=== PATIENT | female | born 1940 | race Asian ===

== ENCOUNTER 2018-03-09 16:33 | Inpatient (IN) | payer MEDICARE, OTHER ==
[2018-03-09 17:48] LABS: #Basophils 0.1 thou/uL (0.0-0.2); #Eosinphils 0.3 thou/uL (0.0-0.7); #Lymphocytes 1.4 thou/uL (1.20-3.40); #Monocytes 0.6 thou/uL (0.11-0.59); #Neutrophils 4.8 thou/uL (1.40-6.50); %Basophils 1.2 % (0.0-1.0); %Eosinophils 4.6 % (0.0-10.0); %Lymphocytes 19.3 % (21.0-51.0); %Monocytes 8.2 % (0.0-10.0); %Neutrophils 66.7 % (42.0-75.0); Hemoglobin 15.4 g/dL (12.0-16.0); Mean Corpuscular HGB CONC 32.5 g/dL (32.0-36.0); Mean Corpuscular Hemoglobin 29.5 pg (27.0-31.0); Mean Corpuscular Volume 90.7 fL (78.0-98.0); Mean Platelet Volume 6.9 fL (7.4-10.4); Platelet Count 261 thou/uL (130-400); RBC Distribution Width 11.2 % (11.5-14.5); Red Blood Cell (RBC) Count 5.23 mill/uL (4.20-5.40); White Blood Cell (WBC) Count 7.3 thou/uL (4.8-10.8)
[2018-03-09 18:07] LABS: ALT (SGPT) 16 U/L (8-55); AST (SGOT) 34 U/L (5-34); Albumin 4.9 g/dL (3.4-4.8); Alkaline Phosphatase 91 U/L (40-150); Anion Gap 14 mmol/L (10-20); BUN (Urea Nitrogen) 23 mg/dL (9.8-20.1); Bilirubin, Total 0.6 mg/dL (0.2-1.2); CK (CPK) 120 U/L (29-168); Calc. Creatinine Clearance 0 mL/min (70-130); Calcium 10.8 mg/dL (7.8-10.44); Carbon Dioxide 30 mmol/L (23-31); Chloride 100 mmol/L (98-107); Estimated GFR-MDRD 41; Globulin 3.8 g/dL (2.4-3.5); Glucose 121 mg/dL (83-110); Potassium 3.7 mmol/L (3.5-5.1); Protein, Total 8.7 g/dL (6.0-8.3); Sodium 140 mmol/L (136-145)
[2018-03-09 18:12] LABS: Troponin I Less than 0.010 ng/mL (< 0.028)
[2018-03-09 18:25] LABS: Bilirubin Negative (Negative); Blood, Urine Negative (Negative); Clarity CLEAR (Clear); Glucose, Urine (Dipstick) Negative (Negative); Leukocyte Negative (Negative); Nitrite Negative (Negative); Protein, Urine (Dipstick) Negative (Neg-Trace); Urobilinogen 0.2 mg/dL (0.2-1.0)
--- NOTE | 2018-03-09 19:19 | RAD ---
FRONTAL VIEW CHEST: INDICATIONS: Altered mental status. FINDINGS: There is accentuation of the cardiac silhouette by scoliotic curvature of the spine, as well as chase ble technique. Marked left convexity curvature of the lumbar spine is present. There are interstiti al opacities of the bilateral perihilar regions and lower lung zones. No obvious left-sided effusion . Hazy density at the lateral right lung base could relate to small volume of pleural fluid versus p leural thickening. No discrete pneumothorax. IMPRESSION: 1. Findings that may relate to a mild degree of interstitial edema at the perihilar regions versus b ronchiolitis. 2. Patchy density at right lateral lung base, which may relate to small pleural fluid versus pleural thickening. As necessary, imaging followup may be obtained with a dedicated two view chest for continued assessme nt. POS: CR
--- NOTE | 2018-03-09 20:08 | CT ---
HEAD CT WITHOUT CONTRAST: HISTORY: Altered mental status. Worsening confusion and weakness. COMPARISON: None. CORRELATION: CT cervical spine from 12/08/2013 FINDINGS: There is irregularity involving the C1-C2 level, which is similar to the previous examination. The c alvarium is intact. Adequate aeration of the paranasal sinuses and mastoid air cells. No parenchymal hemorrhage. No extraaxial hematoma. No midline shift. The basilar cisterns are piña nt. Age appropriate brain volume. There are chronic small vessel ischemic changes of the white yoel er. There appears to be a subacute infarct involving the left occipitoparietal lobe. There is loss of co rtical seaman white matter differentiation and sulcal effacement. IMPRESSION: Subacute left occipitoparietal infarct. POS: [facility]
[2018-03-09] MEDS ORDERED: Aspirin 325 MG TAB ONE (20:37)
[2018-03-09 20:53] LABS: PTT 34.3 SEC (22.9-36.1); Prothrombin Time 12.8 SEC (12.0-14.7)
[2018-03-09] MEDS ORDERED: Acetaminophen 325 MG TAB PO PRN (21:07)
[2018-03-09] MEDS ORDERED: Ondansetron HCl/PF 4 MG/2 ML Vial IVP PRN (21:07)
[2018-03-09] MEDS ORDERED: cloNIDine 0.1 MG TAB ONE ×2 (21:41→21:44)
[2018-03-09] MEDS ORDERED: Nitroglycerin 2% Ointment 1 INCH/1 GM Packet ONE (21:41)
[2018-03-09 22:18] LABS: Troponin I Less than 0.010 ng/mL (< 0.028)
--- NOTE | 2018-03-09 23:56 | HP ---
TIME OF EVALUATION: 8:50 p.m. PRIMARY CARE PHYSICIAN: Dr. Al Russell. CODE STATUS: DNR as stated by the patient and daughter who is the power of litigation attorney who was at [facility]. CHIEF COMPLAINT: The patient has been a change in mental status and changes in vision for the past f ew days. HISTORY OF PRESENT ILLNESS: This is a 77-year-old female patient with past medical history of hyperl ipidemia, hypertension, arthritis, came to the hospital after having moderate gradually worsening con fusion for the past 2 days, associated with changes in vision especially on the left eye, with no filiberto ar triggers, no alleviating factors, these symptoms have been present for 2 days. REVIEW OF SYSTEMS: Constitutional: No fever or chills or generalized weakness. Respiratory: No co ugh, sputum production, or shortness of breath. Cardiovascular: No chest pain or palpitation. Abdi rointestinal: No nausea, no vomiting, diarrhea, or abdominal pain. Central Nervous Systems: The pa tient has an episode of change in vision, change in mental status. No headache or fever or lighthead ed. Genitourinary: No burning on urination. Extremities: No leg swelling. All other systems were reviewed and were negative except for the findings mentioned above. PAST MEDICAL HISTORY: Patient has arthritis, hyperlipidemia, high-cholesterol, hypertension. PAST SURGICAL HISTORY: Bladder suspension surgery, surgical history of hysterectomy. PSYCHIATRIC HISTORY: No previous psychiatric history. SOCIAL HISTORY: No alcohol, no drugs. No smoking history. Lives at home with family. KNOWN ALLERGIES: ERYTHROMYCIN, IODINE, IV DYE, PENICILLIN, TETRACYCLINE. REPORTED MEDICATION: Hydrochlorothiazide, tramadol, clonidine, nifedipine, Toprol, prednisone. PHYSICAL EXAMINATION: VITAL SIGNS: On presentation, blood pressure 166/78 with heart rate 64, respiratory rate of 16, temp erature 98, oxygen saturation was 96 on room air. GENERAL APPEARANCE: Patient is alert, oriented x2, not in any acute distress. Good mood. HEENT: Eyes: Normal conjunctivae. Moist oral mucosa. Anicteric. NECK: No JVD. RESPIRATORY: Bilateral air entry. No rales, no wheezing. Symmetric expansion. CARDIOVASCULAR: Normal rate, regular rhythm. No murmurs, no gallop. EXTREMITIES: No edema. ABDOMEN: Soft. Normal bowel sounds. MUSCULOSKELETAL: Baseline range of motion and strength. No tenderness. Peripheral pulses are prese nt. Capillary refill seems to be intact. SKIN: Warm and intact. No pallor, no rash, no redness. NEUROLOGIC: Baseline sensory. No evidence of any new focal weakness. Baseline speech. Cranial ner ves seem to be intact. PSYCHIATRIC: The patient is in good mood. No anxiety. Oriented, optimal judgment. IMAGING: EKG, the patient has ventricular rate of 69, DC 148, QRS 76, QT corrected 428, normal sinus rhythm, possible left atrial enlargement, nonspecific T-wave abnormalities. Brain CT showed that e patient has subacute left occipital parietal infarct. Chest x-ray showed the patient has findings that may be related to a mild degree of interstitial edema at the perihilar region versus bronchiolit is, patchy density in the right lateral lung base might be related to small fluid versus pleural thic kening. LABORATORY DATA: Reviewed. The patient had white count of 7.3, hemoglobin 15.4, MCV 90, platelet co unt 261,000. Coagulation was normal. Chemistry: Sodium was 140, potassium 3.7, chloride 100, carbo n dioxide 30, anion gap 14, BUN 23 with creatinine 1.6. In previous admission, the creatinine was 1. 9, so this is chronic after reviewing the old records by myself. Glucose 121, calcium 10.8. LFTs we re negative. Serum total protein 8.7, albumin 4.9, globulin 3.8. UA was negative. ASSESSMENT AND PLAN: The patient was placed in the hospital with following medical problems: 1. Subacute left occipital parietal infarct, likely etiology for the patient's symptoms and presenta tion, changes in vision and change in mental status, we will do a stroke protocol. The patient will need echo, carotid Doppler, MRI; however, the patient has a known history of arthritis and now in a d ifficult time staying still to get the test, might need pain medications prior to the test. We will consult Neurology. We will follow recommendations. 2. Controlled high blood pressure. The patient presented with systolic hypertension, systolic in e 170s. We will reconcile home medications. We will not treat aggressively given new presentation w ith neurological symptoms. 3. Chronic kidney disease stage 3 with GFR 41 and elevation in BUN and creatinine when compared with old records, these values are about the same. 4. Mild hyperglycemia. We will hydrate. We will monitor. We will adjust treatment as needed. 5. Hyperlipidemia. Reconcile home medications. Blood cholesterol diet is advised. 6. Deep venous thrombosis prophylaxis.
[2018-03-10 01:33] LABS: Troponin I 0.012 ng/mL (< 0.028)
[2018-03-10 02:33] VITALS: BMI 22.4
[2018-03-10 04:11] LABS: #Basophils 0.1 thou/uL (0.0-0.2); #Eosinphils 0.3 thou/uL (0.0-0.7); #Lymphocytes 1.9 thou/uL (1.20-3.40); #Monocytes 0.9 thou/uL (0.11-0.59); #Neutrophils 5.3 thou/uL (1.40-6.50); %Lymphocytes 22.3 % (21.0-51.0); %Monocytes 10.4 % (0.0-10.0); %Neutrophils 62.3 % (42.0-75.0); Hemoglobin 13.4 g/dL (12.0-16.0); Mean Corpuscular HGB CONC 32.9 g/dL (32.0-36.0); Mean Corpuscular Hemoglobin 30.4 pg (27.0-31.0); Mean Corpuscular Volume 92.4 fL (78.0-98.0); Mean Platelet Volume 7.4 fL (7.4-10.4); Platelet Count 233 thou/uL (130-400); RBC Distribution Width 11.2 % (11.5-14.5); Red Blood Cell (RBC) Count 4.42 mill/uL (4.20-5.40); White Blood Cell (WBC) Count 8.5 thou/uL (4.8-10.8)
[2018-03-10 04:25] LABS: Anion Gap 14 mmol/L (10-20); BUN (Urea Nitrogen) 21 mg/dL (9.8-20.1); Calc. Creatinine Clearance 34 mL/min (70-130); Calcium 9.5 mg/dL (7.8-10.44); Carbon Dioxide 24 mmol/L (23-31); Chloride 106 mmol/L (98-107); Cholesterol 215 mg/dl (< 200 Desired); Estimated GFR-MDRD 49; Glucose 129 mg/dL (83-110); HDL Cholesterol 36 mg/dL (>60 Neg Risk); LDL Cholesterol, Calculated 145 mg/dL; Potassium 3.4 mmol/L (3.5-5.1); Sodium 141 mmol/L (136-145); Triglycerides 170 mg/dL (Less than 150)
[2018-03-10] MEDS: Enoxaparin Sodium 40 MG/0.4 ML SYRINGE SC SCH (08:35)
[2018-03-10] MEDS: Aspirin 325 mg Enteric Coated Tablet PO SCH (08:36)
[2018-03-10] MEDS ORDERED: Prevnar 13-Val Conj/PF 0.5 ML SYRINGE IM ONE (09:00)
[2018-03-10] MEDS: CeleCOXIB 100 MG CAP PO SCH (09:32)
[2018-03-10] MEDS: NIFEdipine XL 30 MG TAB PO SCH (09:32)
[2018-03-10] MEDS: Hydrochlorothiazide 25 MG TAB PO SCH (09:32)
[2018-03-10] MEDS: traMADol HCl 50 MG TAB PO SCH ×2 (09:33→21:47)
--- NOTE | 2018-03-10 11:40 | MRI ---
MRI BRAIN WITHOUT CONTRAST: History: Stroke. Increasing weakness and confusion x 2-3 days. Comparison: None. Technique: Brain MRI is performed without intravenous gadolinium administration. Multisequential, mul tiplanar images were performed. FINDINGS: There is T2 and FLAIR hyperintensity with associated restricted diffusion involving the left occipita l parietal lobe compatible with a posterior left MCA distribution infarct. Additional FLAIR and white matter hyperintensities are noted due to chronic small vessel ischemic change. Central arterial flow voids are maintained. Mild mucosal thickening of the paranasal sinuses. No hemorrhage on the axial gradient echo sequence. No midline shift. With the exception of the left occipital region, cortical seaman white matter differe ntiation is preserved. No evidence of hydrocephalus. Calvarium is intact. Appropriate T1 marrow signal intensity. There is irregularity involving the uppe r cervical spine similar to previous examination. IMPRESSION: Acute posterior left MCA distribution infarct. POS: [facility]
--- NOTE | 2018-03-10 13:01 | PDOC.PN ---
- Subjective Encounter Start Date: 03/10/18 Encounter Start Time: 11:20 -: old records requested/rev PT SEEN AND EXAMINED, CHART REVIEWED IN ITS ENTIRETY, THIS IS MY FIRST VISIT WITH THIS PATIENT pt still feels week, OT faustino reviewed, required signifigant assitance, rehab recommended. Vision back to baseline MRI done, left ANIMATION ARTIST infarct, acute, noted No F/C, no N/V/D/C, no CP or SOB, no acute overnight events, no new complaints All systems reviewed and neg except as stated above - Objective Resuscitation Status: Resuscitation Status DNR:Do Not Resuscitate MAR Reviewed: Yes Vital Signs & Weight: Vital Signs (12 hours) Temp Pulse Resp BP BP Pulse Ox 03/10/18 11:41 97.8 F 56 L 12 149/74 H 99 03/10/18 09:32 65 181/82 H 03/10/18 07:37 97.7 F 65 12 181/82 H 97 03/10/18 07:30 97 03/10/18 04:00 97.3 F L 62 14 125/77 96 03/10/18 01:12 98.4 F 60 16 161/83 H 96 03/10/18 01:00 96 Weight Weight 111 lb 1 oz I&O: 03/09/18 03/10/18 03/11/18 06:59 06:59 06:59 Intake Total 30 Balance 30 Result Diagrams: 03/10/18 00:23 03/10/18 00:23 Radiology Reviewed by me: Yes EKG Reviewed by me: Yes Phys Exam - Physical Examination Constitutional: NAD HEENT: PERRLA, moist MMs, sclera anicteric, oral pharynx no lesions Neck: no nodes, no JVD, supple, full ROM Respiratory: no wheezing, no rales, no rhonchi, clear to auscultation bilateral Cardiovascular: RRR, no significant murmur, no rub Gastrointestinal: soft, non-tender, no distention, positive bowel sounds Musculoskeletal: no edema Neurological: non-focal, normal sensation, moves all 4 limbs Lymphatic: no nodes Psychiatric: normal affect Skin: no rash, normal turgor, cap refill <2 seconds Dx/Plan (1) Acute left ANIMATION ARTIST stroke Code(s): I63.532 - CEREB INFRC D/T UNSP OCCLS OR STENOS OF LEFT POST CEREB ART Status: Acute (2) Metabolic encephalopathy Code(s): G93.41 - METABOLIC ENCEPHALOPATHY Status: Acute (3) HTN (hypertension) Code(s): I10 - ESSENTIAL (PRIMARY) HYPERTENSION Status: Chronic Qualifiers: Hypertension type: essential hypertension Qualified Code(s): I10 - Essential (primary) hypertension (4) HLD (hyperlipidemia) Code(s): E78.5 - HYPERLIPIDEMIA, UNSPECIFIED Status: Chronic Qualifiers: Hyperlipidemia type: mixed hyperlipidemia Qualified Code(s): E78.2 - Mixed hyperlipidemia Comment: elevated TChol and Trig. contiue lipitor for now - Plan cont current plan of care, plan discussed w/ family, PT/OT, social worker, speech therapy, out of bed/ambulate * . follow up on neuro recs. continue ASA 325 for now
[2018-03-10] MEDS ORDERED: traMADol HCl 50 MG TAB PO SCH (21:00)
[2018-03-10] MEDS: Atorvastatin Calcium 40 MG TAB PO SCH (21:46)
--- NOTE | 2018-03-11 03:20 | CON ---
DATE OF CONSULTATION: 03/10/2018 CONSULTING PHYSICIAN: Hospitalist Service. IMPRESSION: 1. Acute left occipitoparietal infarct with mild receptive aphasia and vision distortion. 2. Hypertension. 3. Hyperlipidemia. PLAN: 1. Aspirin. 2. Statin. 3. Echocardiogram. 4. Carotid ultrasound. HISTORY OF PRESENT ILLNESS: Ms. Love is a 77-year-old woman who has been in my practice now for qu ite some time. 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 She presented with acute mental stat us changes with difficulty comprehending and experiencing some blurred vision. She has been having a known history of hypertension. Her workup thus far showed area of acute ischemia in the left occipitoparietal region by CT. This wa s again confirmed by MRI of the brain. Her cholesterol ratio was 6. Ultrasounds are pending. She w as not taking aspirin or statin prior to admission. I agree with current plan of workup and treatmen t. I will be happy to follow up with her in the office.
[2018-03-11] MEDS ORDERED: Hydrochlorothiazide 25 MG TAB PO SCH (09:00)
[2018-03-11] MEDS ORDERED: NIFEDIPINE PO SCH (09:00)
[2018-03-11] MEDS ORDERED: Non-Formulary Item 1 EACH (Celecoxib [Celebrex] 200 MG) PO SCH (09:00)
[2018-03-11] MEDS ORDERED: METOPROLOL SUCCINATE PO SCH (09:00)
[2018-03-11] MEDS: Aspirin 325 mg Enteric Coated Tablet PO SCH (09:12)
[2018-03-11] MEDS: CeleCOXIB 100 MG CAP PO SCH (09:12)
[2018-03-11] MEDS: traMADol HCl 50 MG TAB PO SCH ×2 (09:13→20:36)
[2018-03-11] MEDS: Hydrochlorothiazide 25 MG TAB PO SCH (09:13)
[2018-03-11] MEDS: NIFEdipine XL 30 MG TAB PO SCH (09:20)
[2018-03-11] MEDS: Enoxaparin Sodium 40 MG/0.4 ML SYRINGE SC SCH (09:20)
[2018-03-11] MEDS: Atorvastatin Calcium 40 MG TAB PO SCH (20:35)
[2018-03-11] MEDS: hydrALAZINE 20 MG/ML VIAL SLOW IVP PRN (20:44)
[2018-03-12] MEDS: CeleCOXIB 100 MG CAP PO SCH (09:12)
[2018-03-12] MEDS: Aspirin 325 mg Enteric Coated Tablet PO SCH (09:12)
[2018-03-12] MEDS: Enoxaparin Sodium 40 MG/0.4 ML SYRINGE SC SCH (09:12)
[2018-03-12] MEDS: Hydrochlorothiazide 25 MG TAB PO SCH (09:13)
[2018-03-12] MEDS: NIFEdipine XL 30 MG TAB PO SCH (09:13)
[2018-03-12] MEDS: hydrALAZINE 20 MG/ML VIAL SLOW IVP PRN (10:44)
[2018-03-12] MEDS ORDERED: NIFEdipine XL 30 MG TAB PO SCH (10:45)
[2018-03-12] MEDS ORDERED: Labetalol HCl 100 MG/20 ML VIAL SLOW IVP PRN (10:48)
[2018-03-12] MEDS: traMADol HCl 50 MG TAB PO SCH (11:07)
--- NOTE | 2018-03-12 14:47 | PDOC.PN ---
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 different daughter at bedside. updated to condition and plan Seen by OT, recommended rehab placement, process begun NO f/C, no n/V/d/C, no CP or SOB. more alert and speech clearer All systems reviewed and neg x as above - Objective Resuscitation Status: Resuscitation Status DNR:Do Not Resuscitate MAR Reviewed: Yes Vital Signs & Weight: Vital Signs (12 hours) Temp Pulse Pulse Pulse Resp BP BP 03/12/18 12:00 98.5 F 84 26 H 03/12/18 11:07 89 185/84 H 03/12/18 10:44 89 185/84 H 03/12/18 10:34 82 76 136/64 03/12/18 09:13 89 171/102 H 03/12/18 07:50 98.0 F 89 20 03/12/18 04:39 03/12/18 04:00 97.6 F 73 24 H BP BP Pulse Ox Pulse Ox Pulse Ox 03/12/18 12:00 128/65 100 03/12/18 11:07 03/12/18 10:44 03/12/18 10:34 185/84 H 98 96 03/12/18 09:13 03/12/18 07:50 171/102 H 96 03/12/18 04:39 158/83 H 03/12/18 04:00 170/79 H 97 Weight Weight 111 lb 1 oz I&O: 03/11/18 03/12/18 03/13/18 06:59 06:59 06:59 Intake Total 720 100 600 Balance 720 100 600 Result Diagrams: 03/10/18 00:23 03/10/18 00:23 Radiology Reviewed by me: Yes EKG Reviewed by me: Yes Phys Exam - Physical Examination Constitutional: NAD HEENT: PERRLA, moist MMs, sclera anicteric, oral pharynx no lesions Neck: no nodes, no JVD, supple, full ROM Respiratory: no wheezing, no rales, no rhonchi, clear to auscultation bilateral Cardiovascular: RRR, no significant murmur, no rub Gastrointestinal: soft, non-tender, no distention, positive bowel sounds Musculoskeletal: no edema Neurological: non-focal, normal sensation, moves all 4 limbs Lymphatic: no nodes Psychiatric: normal affect Skin: no rash, normal turgor, cap refill <2 seconds Dx/Plan (1) 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 Code(s): I63.532 - CEREB INFRC D/T UNSP OCCLS OR STENOS OF LEFT POST CEREB ART Status: Acute (2) Metabolic encephalopathy Code(s): G93.41 - METABOLIC ENCEPHALOPATHY Status: Acute Comment: improving (3) HTN (hypertension) Code(s): I10 - ESSENTIAL (PRIMARY) HYPERTENSION Status: Chronic Qualifiers: Hypertension type: essential hypertension Qualified Code(s): I10 - Essential (primary) hypertension (4) HLD (hyperlipidemia) Code(s): E78.5 - HYPERLIPIDEMIA, UNSPECIFIED Status: Chronic Qualifiers: Hyperlipidemia type: mixed hyperlipidemia Qualified Code(s): E78.2 - Mixed hyperlipidemia Comment: elevated TChol and Trig. contiue lipitor for now - Plan cont current plan of care, plan discussed w/ family, PT/OT, social media project manager, out of bed/ambulate * . to rehab when approved and bed available
--- NOTE | 2018-03-12 14:50 | PDOC.PN ---
- Subjective Encounter Start Date: 03/12/18 Encounter Start Time: 10:30 pt less clear today. SBP up at 210, PT in room. no f/c, n N/V/D/c, no CP denies SOB. Ivonne solano daughter at bedside, no rehab beds yet, will CCM All systems reviewed and neg x as above - Objective Resuscitation Status: Resuscitation Status DNR:Do Not Resuscitate MAR Reviewed: Yes Vital Signs & Weight: Vital Signs (12 hours) Temp Pulse Pulse Pulse Resp BP BP 03/12/18 12:00 98.5 F 84 26 H 03/12/18 11:07 89 185/84 H 03/12/18 10:44 89 185/84 H 03/12/18 10:34 82 76 136/64 03/12/18 09:13 89 171/102 H 03/12/18 07:50 98.0 F 89 20 03/12/18 04:39 03/12/18 04:00 97.6 F 73 24 H BP BP Pulse Ox Pulse Ox Pulse Ox 03/12/18 12:00 128/65 100 03/12/18 11:07 03/12/18 10:44 03/12/18 10:34 185/84 H 98 96 03/12/18 09:13 03/12/18 07:50 171/102 H 96 03/12/18 04:39 158/83 H 03/12/18 04:00 170/79 H 97 Weight Weight 111 lb 1 oz I&O: 03/11/18 03/12/18 03/13/18 06:59 06:59 06:59 Intake Total 720 100 600 Balance 720 100 600 Result Diagrams: 03/10/18 00:23 03/10/18 00:23 Phys Exam - Physical Examination Constitutional: NAD HEENT: PERRLA, moist MMs, sclera anicteric, oral pharynx no lesions Neck: no nodes, no JVD, supple, full ROM Respiratory: no wheezing, no rales, no rhonchi, clear to auscultation bilateral Cardiovascular: RRR, no significant murmur, no rub Gastrointestinal: soft, non-tender, no distention, positive bowel sounds Musculoskeletal: no edema Neurological: non-focal, normal sensation, moves all 4 limbs Lymphatic: no nodes Psychiatric: normal affect Skin: no rash, normal turgor, cap refill <2 seconds Dx/Plan (1) Acute left INSURANCE CLAIMS ANALYST stroke Code(s): I63.532 - CEREB INFRC D/T UNSP OCCLS OR STENOS OF LEFT POST CEREB ART Status: Acute (2) Metabolic encephalopathy Code(s): G93.41 - METABOLIC ENCEPHALOPATHY Status: Acute Comment: improving (3) HTN (hypertension) Code(s): I10 - ESSENTIAL (PRIMARY) HYPERTENSION Status: Chronic Qualifiers: Hypertension type: essential hypertension Qualified Code(s): I10 - Essential (primary) hypertension (4) HLD (hyperlipidemia) Code(s): E78.5 - HYPERLIPIDEMIA, UNSPECIFIED Status: Chronic Qualifiers: Hyperlipidemia type: mixed hyperlipidemia Qualified Code(s): E78.2 - Mixed hyperlipidemia Comment: elevated TChol and Trig. contiue lipitor for now - Plan cont current plan of care, plan discussed w/ family, PT/OT, rn social services, out of bed/ambulate * . to rehab when bed available
[2018-03-12 16:49] LABS: PTT 44.2 SEC (22.9-36.1); Prothrombin Time 13.6 SEC (12.0-14.7)
[2018-03-12 16:51] LABS: BHCG - Serum Negative (NEGATIVE); Pregs Control Background? CLEAR/WHITE (CLR/WHITE); Pregs Control Bar Appear? YES (CONTROL BAR)
[2018-03-12 17:01] LABS: CKMB 5.2 ng/mL (0-6.6); Troponin I 0.012 ng/mL (< 0.028)
--- NOTE | 2018-03-12 18:37 | CT ---
CT BRAIN: Date: 03/12/18 PROVIDED CLINICAL HISTORY: Altered mental status. FINDINGS: Comparison made with the CT examination dated 03/09/18 and MRI dated 03/10/18. Vasogenic and cytotoxic edema in the posterior distribution of the left middle cerebral artery is red emonstrated, compatible with known infarction. There is no evidence for intracranial hemorrhage. Ther e is no shift of the midline structures. The ventricular system remains normal in size. The extracran ial soft tissues and osseous structures demonstrate an unchanged CT appearance. Stenosis at the crani ocervical junction related to degenerative change is redemonstrated, stable. IMPRESSION: No evidence for intracranial hemorrhage. Expected evolution of posterior left MCA distribution infarc tion without significant mass effect. Findings communicated to the patient's nurse, Armando at 1642 hours on 03/12/18. CODE CR. POS: CR
[2018-03-12] MEDS: Atorvastatin Calcium 40 MG TAB PO SCH (20:33)
[2018-03-13] MEDS: traMADol HCl 50 MG TAB PO SCH ×3 (04:04→22:12)
[2018-03-13 07:57] LABS: #Basophils 0.1 thou/uL (0.0-0.2); #Eosinphils 0.1 thou/uL (0.0-0.7); #Lymphocytes 1.5 thou/uL (1.20-3.40); #Monocytes 0.9 thou/uL (0.11-0.59); #Neutrophils 6.2 thou/uL (1.40-6.50); %Basophils 0.7 % (0.0-1.0); %Eosinophils 1.4 % (0.0-10.0); %Lymphocytes 16.7 % (21.0-51.0); %Monocytes 9.9 % (0.0-10.0); %Neutrophils 71.3 % (42.0-75.0); Hemoglobin 16.1 g/dL (12.0-16.0); Mean Corpuscular HGB CONC 32.8 g/dL (32.0-36.0); Mean Corpuscular Hemoglobin 30.1 pg (27.0-31.0); Mean Corpuscular Volume 91.8 fL (78.0-98.0); Mean Platelet Volume 7.1 fL (7.4-10.4); Platelet Count 288 thou/uL (130-400); RBC Distribution Width 11.5 % (11.5-14.5); Red Blood Cell (RBC) Count 5.35 mill/uL (4.20-5.40); White Blood Cell (WBC) Count 8.7 thou/uL (4.8-10.8)
[2018-03-13 08:17] LABS: Anion Gap 17 mmol/L (10-20); BUN (Urea Nitrogen) 30 mg/dL (9.8-20.1); Calc. Creatinine Clearance 26 mL/min (70-130); Calcium 10.2 mg/dL (7.8-10.44); Carbon Dioxide 22 mmol/L (23-31); Chloride 102 mmol/L (98-107); Estimated GFR-MDRD 36; Glucose 121 mg/dL (83-110); Potassium 3.5 mmol/L (3.5-5.1); Sodium 137 mmol/L (136-145)
[2018-03-13] MEDS: CeleCOXIB 100 MG CAP PO SCH (08:53)
[2018-03-13] MEDS: Enoxaparin Sodium 40 MG/0.4 ML SYRINGE SC SCH (08:53)
[2018-03-13] MEDS: NIFEdipine XL 60 MG TAB PO SCH (08:53)
[2018-03-13] MEDS: Hydrochlorothiazide 25 MG TAB PO SCH (08:53)
[2018-03-13] MEDS: Aspirin 325 mg Enteric Coated Tablet PO SCH (08:53)
--- NOTE | 2018-03-13 10:50 | PDOC.PN ---
- Subjective Encounter Start Date: 03/13/18 Encounter Start Time: 10:50 -: old records requested/rev code green yesterday for weakenss, R>L, reportedly resolved, CT head neg except for expected progression On my visit she is still profoundly weak to the right side, right sided facial droop and aphasic suspected hypertensive encephalopathy PT not eating or drinking well. no f/c, no N/V/D/c, no CP or SOB. Family said no to PEG, MAYBE to DFT temporarily ROS neg for all systems except as above - Objective Resuscitation Status: Resuscitation Status DNR:Do Not Resuscitate MAR Reviewed: Yes Vital Signs & Weight: Vital Signs (12 hours) Temp Pulse Resp BP Pulse Ox 03/13/18 08:53 75 03/13/18 08:51 97.7 F 75 16 156/77 H 100 03/13/18 04:00 97.4 F L 70 18 136/66 100 03/13/18 00:00 98 F 76 14 135/65 95 Weight Weight 111 lb 1 oz I&O: 03/12/18 03/13/18 03/14/18 06:59 06:59 06:59 Intake Total 100 600 Balance 100 600 Result Diagrams: 03/13/18 07:50 03/13/18 07:50 Additional Labs: Accuchecks 03/12/18 16:14 POC Glucose 116 H Radiology Reviewed by me: Yes EKG Reviewed by me: Yes Phys Exam - Physical Examination Constitutional: NAD HEENT: PERRLA, moist MMs, sclera anicteric, oral pharynx no lesions Neck: no nodes, no JVD, supple, full ROM Respiratory: no wheezing, no rales, no rhonchi, clear to auscultation bilateral Cardiovascular: RRR, no significant murmur, no rub Gastrointestinal: soft, non-tender, no distention, positive bowel sounds Musculoskeletal: no edema Neurological: non-focal, normal sensation, moves all 4 limbs Lymphatic: no nodes Psychiatric: normal affect Skin: no rash, normal turgor, cap refill <2 seconds Dx/Plan (1) 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 MRI ordered (2) Metabolic encephalopathy Code(s): G93.41 - METABOLIC ENCEPHALOPATHY Status: Acute Comment: improving (3) HTN (hypertension) Code(s): I10 - ESSENTIAL (PRIMARY) HYPERTENSION Status: Chronic Qualifiers: Hypertension type: essential hypertension Qualified Code(s): I10 - Essential (primary) hypertension (4) HLD (hyperlipidemia) Code(s): E78.5 - HYPERLIPIDEMIA, UNSPECIFIED Status: Chronic Qualifiers: Hyperlipidemia type: mixed hyperlipidemia Qualified Code(s): E78.2 - Mixed hyperlipidemia Comment: elevated TChol and Trig. contiue lipitor for now - Plan * .
--- NOTE | 2018-03-13 17:11 | MRI ---
MRI BRAIN NONCONTRAST: DATE: 03/13/18 TIME: 1533 HOURS HISTORY: 77-year-old female with left MCA acute stroke, with worsening of symptoms. Worsening of right upper e xtremity weakness. Altered mental status. COMPARISON: 03/10/18. FINDINGS: The previously demonstrated moderately large region of left parietooccipital restricted diffusion wit h hyperintense T2 signal has become larger now, now involving areas more anterior to it and more supe rior to it, with more of the posterior aspect of the left temporal lobe, and now involving significan t portions of the left lateral suprasylvian frontal lobe. The cytotoxic edema associated with the ent anny infarction effaces local sulci, and effaces the trigone of the left lateral ventricle. The rest o f the ventricles are normal in size and configuration. There is no midline shift. Diffuse moderate chronic ischemic white matter changes are again noted. No hemorrhagic conversion is identified. No new extra-axial fluid collection. Again noted are the very severe hypertrophic degenerative changes of the cervical spine with kyphosis , severe bony hypertrophic resulting in chronic cord compression throughout multiple levels. Severe o sseous hypertrophy and fusion of C1 and C2 results in chronic posterior displacement of the medulla a nd cervicomedullary junction, and high grade narrowing of the foramen magnum. Severe anterolisthesis of what appears to be C2 on C3. No interval change since 03/10/18. Small old infarctions are present in the left cerebellum in the left PICA distribution. A few tiny la cunar infarctions in the contralateral right PICA distribution are also noted. Flow-voids are grossly maintained in the major arteries of [place]. IMPRESSION: 1. Interval worsening, now with greater extent, of the acute left middle cerebral artery territory l arge infarction. 2. Extremely severe hypertrophic degenerative changes in the cervical spine, with severe central spi nal canal stenosis and chronic cord compression, and severe chronic subluxation. 3. Multiple small old infarctions in the bilateral posterior-inferior cerebellar artery territories. CODE T. PENELOPE Simons
[2018-03-13] MEDS: Atorvastatin Calcium 40 MG TAB PO SCH (20:38)
[2018-03-13] MEDS: Sodium Chloride 0.9% 1,000 ML IV SCH (23:16)
[2018-03-14] MEDS: Aspirin 325 mg Enteric Coated Tablet PO SCH (10:05)
[2018-03-14] MEDS: CeleCOXIB 100 MG CAP PO SCH (10:05)
[2018-03-14] MEDS: Enoxaparin Sodium 40 MG/0.4 ML SYRINGE SC SCH (10:05)
[2018-03-14] MEDS: Hydrochlorothiazide 25 MG TAB PO SCH (10:05)
[2018-03-14] MEDS: traMADol HCl 50 MG TAB PO SCH ×2 (10:06→21:03)
[2018-03-14] MEDS: NIFEdipine XL 60 MG TAB PO SCH (10:06)
[2018-03-14] MEDS: Sodium Chloride 0.9% 1,000 ML IV SCH (15:36)
[2018-03-14] MEDS: Atorvastatin Calcium 40 MG TAB PO SCH (21:03)
[2018-03-15] MEDS: Sodium Chloride 0.9% 1,000 ML IV SCH (04:18)
[2018-03-15] MEDS: Aspirin 325 mg Enteric Coated Tablet PO SCH (10:37)
[2018-03-15] MEDS: Hydrochlorothiazide 25 MG TAB PO SCH (10:37)
[2018-03-15] MEDS: CeleCOXIB 100 MG CAP PO SCH (10:37)
[2018-03-15] MEDS: Enoxaparin Sodium 40 MG/0.4 ML SYRINGE SC SCH (10:37)
[2018-03-15] MEDS: NIFEdipine XL 60 MG TAB PO SCH (10:38)
[2018-03-15] MEDS: traMADol HCl 50 MG TAB PO SCH (10:38)
[2018-03-15 11:46] VITALS: BP 155/81; TEMP 98.4
--- NOTE | 2018-03-15 16:28 | DIS ---
DATE OF ADMISSION: 03/09/2018 DATE OF DISCHARGE: 03/15/2018 PRIMARY CARE PHYSICIAN: Al Russell D.O. DISCHARGE DIAGNOSES: 1. 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 2. Extension of middle cerebral artery stroke. 3. Residual right-sided weakness and Broca's aphasia. 4. Metabolic encephalopathy, present on admission, resolved. 5. Hypertension, essential. 6. Hyperlipidemia. CONSULTATIONS: Dr. Jason Villanueva, 03/10/2018. PROCEDURES: Echocardiogram 03/10/2018 that showed EF of 60%-65%, grade I/III diastolic dysfunction, mild MR, moderate TR and RVSP of 32. HISTORY AND PHYSICAL: Ms. Love is a 77-year-old female that presented to the Emergency Department for change in vision and being found down. Initial workup with CT scan was unremarkable and we were subsequently called for admit. HOSPITAL COURSE: The patient was seen by Dr. Loya and placed in the inpatient status. MRI was o rdered that showed acute left parieto-occipital stroke. The patient was started on aspirin, continued on antihyperlipidemics, which she had been taken off as an outpatient and was seen to be doing well with PT, OT. In the morning, echocardiogram was ultimat juan done. The patient continued to progress well and in the afternoon of 03/12/2018, the patient developed acut e right-sided weakness and change in condition. Steph quinteros was called and a stat brain CT was unrema rkable. I followed the patient on 03/13/2018 and she clearly had new neurologic findings of right-si ded weakness and right-sided facial droop and Broca's aphasia. MRI was repeated that showed extensio n of her prior MCA distribution stroke. A discussion will be done with the family and palliative car e consult was requested. The patient was stable, but refusing to eat and drink and no tube feed was requested by the family as the patient has had voiced her wishes against that before. Arrangement was made for the patient to go home with palliative care with [facility] with PT, OT and follow up with her primary doctor. PHYSICAL EXAMINATION: The patient was seen and examined on the day of discharge. Discharge plan and disposition discussed with the patient and her daughters [id number] at the [facility]. DISCHARGE MEDICATIONS: New medications, 1. Aspirin 325 mg daily. 2. Atorvastatin 80 mg p.o. at bedtime. 3. Nifedipine 60 mg p.o. daily. Prescription sent for these. Home medications to continue, 1. Tramadol 50 mg as needed. 2. Toprol XL 200 mg p.o. daily. 3. Metaxalone 800 mg tablets one-fourth tablet p.o. daily as needed for muscle spasm. 4. HCTZ 25 mg daily. 5. Celebrex 200 mg daily. Medication to continue, Procardia 30 mg daily, this was increased. FOLLOWUP APPOINTMENTS: 1. Primary care physician within a week. 2. [facility] with palliative care. DISCHARGE CONDITION: Poor. DISPOSITION: The patient is going to be discharged home via ambulance with [facility] for palliative care. DISCHARGE DIET: Heart healthy soft mechanical with nectar thick liquids recommended, but comfort fee ds allowed. DISCHARGE ACTIVITY: As tolerated.
--- NOTE | 2018-03-15 20:56 | EKG ---
Test Reason : Blood Pressure : / mmHG Vent. Rate : 087 BPM Atrial Rate : 087 BPM P-R Int : 152 ms QRS Dur : 074 ms QT Int : 368 ms P-R-T Axes : 055 050 113 degrees QTc Int : 442 ms Normal sinus rhythm Abnormal ECG When compared with ECG of 09-MAR-2018 17:34, (Unconfirmed) ST more depressed in Anterior leads Confirmed by Clem SCHWARTZ ([id number]) on 03/15/2018 8:56:27 PM Referred By: Confirmed By:Clem SCHWARTZ
== END 2018-03-15 13:13 | disposition home health service (06) | DRG 64 ==
LOC: ERS 16:33 → ERHOLD 20:30 → 2SE 03-10 01:06
PROVIDERS: ADMIT Hospitalist; ATTEND Hospitalist
DX: I63.532 Cerebral infarction due to unspecified occlusion or stenosis of left posterior cerebral artery (principal); G93.41 Metabolic encephalopathy; G81.91 Hemiplegia, unspecified affecting right dominant side; N18.3 Chronic kidney disease, stage 3 (moderate); M19.90 Unspecified osteoarthritis, unspecified site; R47.01 Aphasia; Z66 Do not resuscitate; I12.9 Hypertensive chronic kidney disease with stage 1 through stage 4 chronic kidney disease, or unspecified chronic kidney disease; Z88.0 Allergy status to penicillin; Z79.899 Other long term (current) drug therapy; Z79.52 Long term (current) use of systemic steroids; R73.9 Hyperglycemia, unspecified; H53.8 Other visual disturbances; E78.2 Mixed hyperlipidemia; R29.709 NIHSS score 9
CPT/HCPCS: 36415; 36416; 51701; 70450; 70551; 71045; 80048; 80053; 80061; 81003; 82550; 82553; 83735; 84484; 84703; 85025; 85610; 85730; 90471; 90670; 93005; 93010; 93306; 94760; 96360; 96361; A4216; A4353; G0009; G8978-GP-CK; G8978-GP-CL; G8979-GP-CJ; G8987-GO-CL; G8988-GO-CJ; G8996-GN-CL; G8997-GN-CK; G9159-GN-CK; G9160-GN-CJ; J0360; J1650; J2405